=== PATIENT | male | born 1980 | race Caucasian/White ===

== ENCOUNTER 2023-02-03 15:14 | Emergency (ER) | payer OTHER ==
[~2023-02-03] VITALS: Ht 167.6 cm; Wt 97.0 kg
[2023-02-03 16:23] VITALS: TEMP 99.3
[2023-02-03] MEDS ORDERED: IBUPROFEN 600 MG TABLET PO ONE (16:30)
[2023-02-03] MEDS ORDERED: ACETAMINOPHEN 500 MG TABLET PO ONE (16:30)
[2023-02-03 16:37] LABS: GLUCOMETER DEV NAME(LOC) ER.6; GLUCOSE,POINT OF CARE 127 MG/DL (70-110)
[2023-02-03 18:30] VITALS: BP 135/84; PULSE 65; RESP 18
== END 2023-02-03 18:45 | disposition home or self-care (01) ==
LOC: EMS 15:15
DX: S60.221A Contusion of right hand, initial encounter (principal); E11.9 Type 2 diabetes mellitus without complications; X58.XXXA Exposure to other specified factors, initial encounter; Y93.89 Activity, other specified; Y92.89 Other specified places as the place of occurrence of the external cause; Y99.8 Other external cause status
CPT/HCPCS: 82962; 99283